=== PATIENT | male | born 1990 ===

== ENCOUNTER 2017-03-30 16:08 | Emergency (ER) | payer OTHER ==
[2017-03-30 16:34] VITALS: BP 162/91; PULSE 99; RESP 16; TEMP 98.6; O2SAT 99
--- NOTE | 2017-03-30 17:12 | ED PDOC ---
HPI: General Adult Time Seen by Provider: 03/30/17 16:38 Chief Complaint (Nursing): Abnormal Skin Integrity History Per: Patient Have you had recent travel within the past 21 days to any of the following countries: [place], [place], [place] or [place]?: No Current Symptoms Are (Timing): Still Present Additional History Per: Patient Additional Complaint(s): 26 y/o male complaining of fever x 3 days which resvoled the day he began to have swelling and lesion on the upper left lip. PT states the tried OTC cream and it became worse. No similar in the past. No cough, congestion, sore throat, or other complaint. Past Medical History Reviewed: Historical Data, Nursing Documentation, Vital Signs Vital Signs: Last Vital Signs Temp 98.6 F 03/30/17 16:31 Pulse 99 H 03/30/17 16:31 Resp 16 03/30/17 16:31 BP 162/91 H 03/30/17 16:31 Pulse Ox 99 03/30/17 17:13 - Medical History PMH: No Chronic Diseases - Surgical History Surgical History: No Surg Hx - Family History Family History: States: No Known Family Hx - Living Arrangements Living Arrangements: With Family - Home Medications Home Medications: Ambulatory Orders Medication Instructions Recorded predniSONE [predniSONE Tab] 20 mg PO DAILY #12 tab 03/30/17 valACYclovir [Valtrex] 1 gm PO BID #14 tab 03/30/17 - Allergies Allergies/Adverse Reactions: Allergies Allergy/AdvReac Type Severity Reaction Status Date / Time No Known Allergies Allergy Verified 03/30/17 16:29 Review of Systems Constitutional: Positive for: Fever ENT: Negative for: Nose Congestion, Throat Pain Respiratory: Negative for: Cough Skin: Positive for: Lesions Physical Exam - Reviewed Nursing Documentation Reviewed: Yes Vital Signs Reviewed: Yes - Physical Exam Appears: Positive for: Well, Non-toxic Head Exam: Positive for: ATRAUMATIC, NORMAL INSPECTION, NORMOCEPHALIC Skin: Positive for: Warm, Dry. Negative for: Normal Color Eye Exam: Positive for: Normal appearance ENT: Positive for: Normal ENT Inspection Neck: Positive for: Normal, Supple Cardiovascular/Chest: Positive for: Regular Rate, Rhythm Respiratory: Positive for: Normal Breath Sounds. Negative for: Rales, Rhonchi, Stridor, Wheezing, Respiratory Distress Back: Positive for: Normal Inspection Extremity: Positive for: Normal ROM Neurologic/Psych: Positive for: Alert, Oriented - ECG O2 Sat by Pulse Oximetry: 99 Medical Decision Making Medical Decision Making: Time: 17:13 Initial impression: Initial plan: * ~ Scribe Attestation: Documented by~Holly Awad, acting as a scribe for JUD Gutierrez. Provider Scribe Attestation: All medical record entries made by the Scribe were at my direction and personally dictated by me. I have reviewed the chart and agree that the record accurately reflects my personal performance of the history, physical exam, medical decision making, and the department course for this patient. I have also personally directed, reviewed, and agree with the discharge instructions and disposition. Disposition - Clinical Impression Clinical Impression: Cold sore - Disposition Disposition: Routine/Home Disposition Time: 17:22 Condition: STABLE Prescriptions: predniSONE [predniSONE Tab] 20 mg PO DAILY #12 tab valACYclovir [Valtrex] 1 gm PO BID #14 tab Instructions: Oral Herpes Simplex Virus Infections (ED) Forms: [employer] (Upper Sor[place])
== END 2017-03-30 17:33 | disposition home or self-care (01) ==
LOC: H.ER 16:08
DX: B00.1 Herpesviral vesicular dermatitis (principal)